=== PATIENT | female | born 1995 | race Caucasian/White ===

== ENCOUNTER 2018-03-14 08:31 | Emergency (ER) | payer BC, OTHER ==
[~2018-03-14] VITALS: Ht 170.2 cm; Wt 77.1 kg
[~2018-03-14 08:31] MED LIST: ONDA4SOL2 PO; PANT20TA2 PO
--- NOTE | 2018-03-14 08:39 | NUR ---
Dr Penny at the bedside for MSE.
[2018-03-14 08:51] VITALS: BP 117/79
--- NOTE | 2018-03-14 08:52 | NUR ---
Patient discharged to home in stable conditon. Written and verbal after care instructions given. Patient verbalizes understanding of instructions.
== END 2018-03-14 08:52 | disposition home or self-care (01) ==
LOC: ER 08:31
DX: H66.91 Otitis media, unspecified, right ear (principal); H72.91 Unspecified perforation of tympanic membrane, right ear; Z79.899 Other long term (current) drug therapy
CPT/HCPCS: A4663

== ENCOUNTER 2018-10-17 20:18 | Emergency (ER) | payer BC, MEDICAID, OTHER ==
[~2018-10-17] VITALS: Ht 170.2 cm; Wt 81.6 kg
[2018-10-17] MEDS ORDERED: MECLIZINE HCL 25 MG TABLET PO ONE (21:30)
[2018-10-17] MEDS ORDERED: MECLIZINE HCL 25 MG TABLET ONE (21:32)
[2018-10-17 21:50] LABS: *URINE HCG, QUAL NEGATIVE (NEGATIVE)
[2018-10-17 22:09] VITALS: BP 116/67
== END 2018-10-17 22:10 | disposition home or self-care (01) ==
LOC: ER 20:20
DX: H81.10 Benign paroxysmal vertigo, unspecified ear (principal); R11.0 Nausea; Z79.899 Other long term (current) drug therapy
CPT/HCPCS: 84703; A4663; J8597

== ENCOUNTER 2019-02-15 15:25 | Emergency (ER) | payer BC ==
[~2019-02-15] VITALS: Ht 170.2 cm; Wt 81.6 kg
--- NOTE | 2019-02-15 16:28 | NUR ---
pt is in room #2b. dr Wilson evaluated the pt.
--- NOTE | 2019-02-15 16:45 | NUR ---
PT WAS D/C'd TO HOME. D/C INSTRUCTIONS GIVEN TO THE PT.
[2019-02-15 16:47] VITALS: BP 129/71
== END 2019-02-15 16:47 | disposition home or self-care (01) ==
LOC: ER 15:29
DX: M54.2 Cervicalgia (principal); R11.0 Nausea; Z79.899 Other long term (current) drug therapy
CPT/HCPCS: 36415; 84443; A4663